=== PATIENT | female | born 1995 | race Caucasian/White ===

== ENCOUNTER 2018-12-06 09:40 | Emergency (ER) | payer SELFPAY ==
[~2018-12-06] VITALS: Ht 165.1 cm; Wt 74.0 kg
[2018-12-06 09:47] VITALS: BP 132/92
--- NOTE | 2018-12-06 09:50 | NUR ---
PT AMBULATES TO BED 3
[2018-12-06] MEDS ORDERED: IBUPROFEN 800 MG TAB PO ONE (09:55)
[2018-12-06] MEDS ORDERED: IBUPROFEN 800 MG TAB ONE (09:57)
--- NOTE | 2018-12-06 10:00 | NUR ---
PT IS A 22 Y/O FEMALE WHO PRESENTS TO THE ED C/O FEVER. PER PT IT HAS BEEN GOING ON X5 DAYS. PT REPORTS 4/10 ACHING BODY PAIN. PT DENIES CP, SOB, N/V/D, REPORTS COUGH, LUNG SOUNDS CLEAR BL. PT AWAKE AND ALERT, RR EVEN/UNLABORED. PT REPOSITIONED FOR COMFORT, BED IN LOWEST POSITION. COOLING MEASURES INITIATED. ER MD DR. LUNSFORD NOTIFIED. WILL CONTINUE TO MONITOR. NO PMH NKA
--- NOTE | 2018-12-06 10:05 | NUR ---
PATIENT UNABLE TO GIVE URINE AT THIS TIME.
--- NOTE | 2018-12-06 10:15 | NUR ---
PATIENT PROVIDED URINE AT THIS TIME.
--- NOTE | 2018-12-06 10:15 | NUR ---
INFLUENZA SWAB COLLECTED AND SENT TO LAB.
[2018-12-06 10:27] LABS: APPEARANCE,URINE SL CLOUDY (CLEAR); BILIRUBIN,URINE NEGATIVE (NEGATIVE); COLOR,URINE YELLOW (YELLOW); LEUKOCYTE ESTERASE ,URINE 3+ (NEGATIVE); NITRITE, URINE POSITIVE (NEGATIVE); UGLUCOSE NEGATIVE (NEGATIVE)
[2018-12-06 10:30] LABS: BLOOD, URINE 1+ (NEGATIVE)
[2018-12-06 10:31] LABS: RBC,URINE 0-5 /HPF (0-5)
[2018-12-06] MEDS ORDERED: LEVOFLOXACIN 500 MG TAB PO ONE (11:45)
[2018-12-06] MEDS ORDERED: KETOROLAC 60 MG/2 ML VIAL IM ONE (11:45)
[2018-12-06] MEDS ORDERED: cefTRIAXone 1,000 MG in LIDOCAINE 1% ***ER ONLY *** 2.1 ML IM ONE (11:45)
--- NOTE | 2018-12-06 12:00 | NUR ---
PATIENT RESTING AT THIS TIME. NO SIGNS OF DISTRESS.
[2018-12-06] MEDS ORDERED: cefTRIAXone 1,000 MG VIAL ONE (12:02)
[2018-12-06] MEDS ORDERED: LIDOCAINE MPF 1% 5mL VIAL ONE (12:04)
[2018-12-06 13:29] VITALS: BP 120/82
--- NOTE | 2018-12-06 13:29 | NUR ---
Patient discharged with v/s stable. Written and verbal after care instructions given and explained. Patient alert, oriented and verbalized understanding of instructions. Ambulatory with steady gait. All questions addressed prior to discharge. ID band removed. Patient advised to follow up with PMD. Rx of LEVAQUIN 500MG AND AND NAPROSYN 500MG given. Patient educated on indication of medication including possible reaction and side effects. Opportunity to ask questions provided and answered.
== END 2018-12-06 13:29 | disposition home or self-care (01) ==
LOC: MED 09:40
DX: N39.0 Urinary tract infection, site not specified (principal); R05 Cough
CPT/HCPCS: 81001; 81025; 87086; 87186; 87804; 96372; 99283; J0696; J1885; J2001